=== PATIENT | male | born 1990 | race Caucasian/White ===

== ENCOUNTER → 2016-06-13 | Outpatient (CLI) | payer OTHER ==
[2016-06-13 14:33] LABS: CHLORIDE,CL 104 mmol/L (98-110); SODIUM,NA 138 mmol/L (136-146)
[2016-06-13 14:53] LABS: HIV12 AG/AB 4TH GEN W/REFLEX 0.1 (<1.0)
== END ==
LOC: MW.CHRC 13:32
PROVIDERS: ATTEND Family Medicine
DX: Z51.81 Encounter for therapeutic drug level monitoring (principal)
CPT/HCPCS: 36415; 80053; 81001; 85025; 86592; 87389; 87491; 87591